=== PATIENT | female | born 1950 | race Caucasian/White ===

== ENCOUNTER 2018-09-14 22:44 | Inpatient (IN) | payer MEDICARE, MEDICAID | END 2018-09-18 15:43 | disposition home or self-care (01) | LOC: ED HOLD 09-15 02:10 → ER 22:44 → PCU 3S 09-15 10:10 | DX: J18.9 Pneumonia, unspecified organism (principal); I50.33 Acute on chronic diastolic (congestive) heart failure; J96.01 Acute respiratory failure with hypoxia; N17.9 Acute kidney failure, unspecified ==

== ENCOUNTER → 2018-09-22 | Emergency (ER) | payer MEDICARE, MEDICAID ==
[~2018-09-22] VITALS: Ht 165.1 cm; Wt 75.0 kg
[~2018-09-22] MED LIST: APIX5TAB3 PO; BUDE10.23 INH; BUSP5TAB3 PO; DILT120C19 PO; DONE10TA7 PO; IPRA3AMP31 IH; LYR75C PO; MEMA10TA PO; MONT10TA21 PO; PIOG15TA67 PO; PRED20TA PO; SIMV20TA PO; SITA50TA PO; insulin regular, human 10 units/0.1 ml syringe IV ONE; normal saline 1000ML IV soln IVB ONE
[2018-09-22 12:39] LABS: BASOPHILS % (AUTO) 0.2 % (0-1); EOSINOPHILS % (AUTO) 0 % (0-6); HEMATOCRIT 42.3 % (35.0-45.0); HEMOGLOBIN 13.7 g/dl (12.0-16.0); LYMPHOCYTES # (AUTO) 0.6 X10'3 (1.1-4.8); LYMPHOCYTES % (AUTO) 4.7 % (21-51); MEAN CORPUSCULAR HEMOGLOBIN 30.4 PG (27.0-31.0); MEAN CORPUSCULAR HGB CONC 32.4 g/dL (33.0-36.5); MEAN CORPUSCULAR VOLUME 93.6 FL (78-98); MEAN PLATELET VOLUME 9.4 FL (7.4-10.4); MONOCYTES # (AUTO) 0.8 X10'3 (0-0.9); MONOCYTES % (AUTO) 5.5 % (2-12); NEUTROPHILS # (AUTO) 12.2 X10'3 (1.8-7.7); NEUTROPHILS % (AUTO) 89.6 % (42-75); PLATELET COUNT 246 X10'3 (140-440); RED BLOOD COUNT 4.52 X10'6 (4.20-5.60); RED CELL DISTRIBUTION WIDTH 16.8 % (11.5-14.5); WHITE BLOOD COUNT 13.6 X10'3 (4.5-11.0)
[2018-09-22 12:52] LABS: INR 1.1 INR; PARTIAL THROMBOPLASTIN TIME 27 SECONDS (22-32); PROTHROMBIN TIME 11.2 SECONDS (9.0-12.0)
[2018-09-22 14:24] LABS: ALANINE AMINOTRANSFERASE 41 U/L (12-78); ALBUMIN 2.9 G/DL (3.4-5.0); ALKALINE PHOSPHATASE 50 IU/L (46-116); ANION GAP 6 (8-16); ASPARTATE AMINO TRANSFERASE 11 U/L (10-37); BILIRUBIN,TOTAL 0.2 MG/DL (0.1-1.0); BLOOD UREA NITROGEN 81 MG/DL (7-18); BUN/CREATININE RATIO 35.5 (6.6-38.0); CALCIUM 8.2 MG/DL (8.5-10.1); CHLORIDE 104 MMOL/L (99-107); CREATININE 2.28 MG/DL (0.40-0.90); SODIUM 136 MMOL/L (135-145); TOTAL CARBON DIOXIDE 26.3 MMOL/L (24-32); TOTAL PROTEIN 5.7 G/DL (6.4-8.2); eGFR 21 ML/MIN
[2018-09-22 14:32] LABS: GLUCOSE 454 MG/DL (70-104)
[2018-09-22 15:51] VITALS: BP 139/59
== END ==
LOC: ER 11:24
DX: R53.81 Other malaise (principal); R06.2 Wheezing; I11.0 Hypertensive heart disease with heart failure; I50.9 Heart failure, unspecified; J44.9 Chronic obstructive pulmonary disease, unspecified; E11.9 Type 2 diabetes mellitus without complications; G89.29 Other chronic pain; Z56.0 Unemployment, unspecified; Z90.49 Acquired absence of other specified parts of digestive tract; Z98.890 Other specified postprocedural states; Z98.84 Bariatric surgery status; Z87.01 Personal history of pneumonia (recurrent); Z88.5 Allergy status to narcotic agent; Z79.899 Other long term (current) drug therapy
CPT/HCPCS: 36415; 71045; 80053; 82948; 83605; 83880; 84443; 84484; 85025; 85610; 85730; 93005; 96374; 97116; 97161; 99285; J1815; J7030; 99284

== ENCOUNTER 2018-10-12 19:36 | Emergency (ER) | payer MEDICARE, MEDICAID ==
[~2018-10-12] VITALS: Ht 165.1 cm; Wt 90.9 kg
[~2018-10-12 19:36] MED LIST changes: -insulin regular, human 10 units/0.1 ml syringe IV ONE; -normal saline 1000ML IV soln IVB ONE
[2018-10-12] MEDS ORDERED: furosemide 20MG tablet PO ONE (20:40)
[2018-10-12] MEDS ORDERED: FURO-150 PO (20:42)
[2018-10-12 21:08] VITALS: BP 189/74
[2018-10-16] MEDS ORDERED: INSU100V41 SQ (15:10)
[2018-10-16] MEDS ORDERED: INSU100C4 SQ (15:12)
[2018-10-16] MEDS ORDERED: FLUT1AER INH (15:14)
[2018-10-16] MEDS ORDERED: RIVA15TA PO (15:15)
[2018-10-16] MEDS ORDERED: ATOR20TA PO (15:18)
== END 2018-10-12 21:10 | disposition home or self-care (01) ==
LOC: ER 19:37
DX: R60.0 Localized edema (principal); I50.9 Heart failure, unspecified; I11.0 Hypertensive heart disease with heart failure; J44.9 Chronic obstructive pulmonary disease, unspecified; E11.9 Type 2 diabetes mellitus without complications; G89.29 Other chronic pain; Z90.49 Acquired absence of other specified parts of digestive tract; Z98.0 Intestinal bypass and anastomosis status; Z98.890 Other specified postprocedural states; Z56.0 Unemployment, unspecified; Z88.5 Allergy status to narcotic agent; Z79.01 Long term (current) use of anticoagulants; Z79.899 Other long term (current) drug therapy
CPT/HCPCS: 99284

== ENCOUNTER 2018-10-16 06:08 | Inpatient (IN) | payer MEDICARE, MEDICAID | END 2018-10-21 20:30 | LOC: ER 06:08 → PCU 3S 11:58 | DX: J96.22 Acute and chronic respiratory failure with hypercapnia (principal); J44.1 Chronic obstructive pulmonary disease with (acute) exacerbation; I50.9 Heart failure, unspecified ==